=== PATIENT | male | born 1960 | race Caucasian/White ===

== ENCOUNTER 2019-11-15 12:54 | Day surgery (SDC) | payer OTHER ==
[2019-11-15] MEDS ORDERED: Lidocaine 1% with EPINEPHrine 1:100,000 20 ML MDV ONE (13:09)
[2019-11-15] MEDS ORDERED: Lidocaine 1% with EPINEPHrine 1:100,000 30 ML MDV INJECT ONE ×2 (13:34→13:44)
--- NOTE | 2019-11-15 15:15 | CN ---
SERVICE DATE: 11/15/2019 This 59-year-old male presents to the Surgery Clinic with 2 complaints. He states he had a branch hit him in the back of the head several months ago and since then it has been a nonhealing wound. It occasionally swells up and he squeezes this with some expression of bloody looking fluid. At 1 time, he said he did get a piece of debris out of the material squeezed out, but it has never been able to completely heal. He also has a painful lump on the left knee that he would like excised. So, in the [facility], both procedures were accomplished. Procedure #1, the area over the left knee was prepped and draped sterilely. An elliptical incision was made around what I felt was a sebaceous cyst. I did encounter the cyst wall and just simply excised the area containing the cyst wall. The measurement of the cyst is 0.5 x 1 cm. There are no other margins since this excision just hugged the wall of the cyst. The procedure #2, local anesthesia was infiltrated around the scalp lesion. An elliptical incision was made and carried full-thickness down through the skin. This elliptical incision also measured the same 0.5 x 1 cm. There are no other margins because I was simply excising an area that would possibly contain a foreign body. I did not find any. I did not open this up to look for a foreign body. Both wounds had been closed with interrupted 2-0 nylon sutures, which will be removed in 2 weeks. [facility] /[id number]
== END 2019-11-15 14:00 | disposition home or self-care (01) ==
LOC: DL.SDS 12:54 → DL.GSCL 12:54 → EDSTATUS 13:00 → DL.GSCL 14:00
PROVIDERS: ATTEND Surgery
DX: L72.3 Sebaceous cyst (principal); L98.9 Disorder of the skin and subcutaneous tissue, unspecified
CPT/HCPCS: 11401; 11421

== ENCOUNTER 2020-07-08 15:11 | Emergency (ER) | payer OTHER ==
[2020-07-08] MEDS ORDERED: Sodium Chloride 0.9% 1,000 ML IV ONE ×2 (15:44→17:17)
[2020-07-08] MEDS ORDERED: Sodium Chloride 0.9% 10 ML Syringe FLUSH PRN (15:44)
--- NOTE | 2020-07-08 15:45 | EDM.PDOC ---
<Anuja Roach - Last Filed: 07/08/20 17:55> ED HPI GENERAL MEDICAL PROBLEM - General Chief Complaint: Abdominal Pain Stated Complaint: RIGHT SIDE ACHE, DIARRHEA, PAIN Time Seen by Provider: 07/08/20 15:30 - Related Data Allergies Allergy/AdvReac Type Severity Reaction Status Date / Time No Known Allergies Allergy Verified 11/15/19 13:00 Home Meds: Home Meds Celecoxib 200 mg PO DAILY 09/15/16 [History] Esomeprazole Magnesium [Nexium] 40 mg PO DAILY 09/15/16 [History] Labetalol [Normodyne] 100 mg PO DAILY 09/15/16 [History] Loperamide [Imodium] 2 mg PO QID PRN 09/15/16 [History] atorvaSTATin [Lipitor] 10 mg PO DAILY 09/15/16 [History] lisinopriL [Zestril] 10 mg PO DAILY 09/15/16 [History] Course - Radiology Interpretation Free Text/Narrative:: [facility] Final Radiology Report Call: [phone] assistance Online chat: [email or web address] Name: ASAEL DENNY Age: 60Years M Date: 07/08/2020 SSN: -- : [id number] Study: CT ABDOMEN PELVIS W CONT Requesting Physician: ANUJA ROACH Images: [id number] Addl Studies: Provided Clinical History: Right sided abdominal pain, WBC 14.7 Contrast: With Contrast Medium: [id number] Contrast Amount: 75 mL Contrast Method: Intravenous (IV) Page 1 of 2 PROCEDURE INFORMATION: Exam: CT Abdomen And Pelvis With Contrast Exam date and time: 07/08/2020 5:09 PM Age: 60 years old Clinical indication: Other: Pain; Additional info: Right sided abdominal pain, wbc 14.7 TECHNIQUE: Imaging protocol: Computed tomography of the abdomen and pelvis with intravenous contrast. Radiation optimization: All CT scans at this facility use at least one of these dose optimization techniques: automated exposure control; mA and/or kV adjustment per patient size (includes targeted exams where dose is matched to clinical indication); or iterative reconstruction. Contrast material: [id number]; Contrast volume: 75 ml; Contrast route: INTRAVENOUS (IV); COMPARISON: CT Abdomen Pelvis w Cont 10/20/2013 10:14 AM FINDINGS: Liver: Simple appearing cyst is present arising from the right lobe of the liver just below the hemidiaphragm. It measures 1.1 x 0.9 cm. No solid hepatic lesion identified. There is no intrahepatic biliary ductal dilatation. Gallbladder and bile ducts: See "Liver" finding. Pancreas: Normal. No ductal dilation. Spleen: Normal. No splenomegaly. Adrenals: Normal. No mass. Kidneys and ureters: Normal. No hydronephrosis. Stomach and bowel: The colon is fluid-filled. The findings suggest probable diarrheal illness. Colitis is possible. No obstruction is identified. Appendix: The appendix is well seen and is normal. Intraperitoneal space: Unremarkable. No free air. No significant fluid collection. ASAEL DENNY | Final Radiology Report CONFIDENTIALITY STATEMENT This report is intended only for use by the referring physician, and only in accordance with law. If you received this in error, call [phone]. Page 2 of 2 Vasculature: [id number] grade calcium is noted within the left anterior descending coronary artery. The heart is not enlarged. Lymph nodes: Unremarkable. No enlarged lymph nodes. Urinary bladder: Unremarkable as visualized. Reproductive: Unremarkable as visualized. Bones/joints: Unremarkable. No acute fracture. Soft tissues: Unremarkable. IMPRESSION: 1. Fluid-filled colon suggesting probable diarrheal illness/colitis. Thank you for allowing us to participate in the care of your patient. Dictated and Authenticated by: Brad Mendez MD 07/08/2020 5:34 PM Central Time ([place] & [place]) - Re-Assessments/Exams Free Text/Narrative Re-Assessment/Exam: 07/08/20 15:59 I saw and evaluated the patient. Discussed with resident and agree with residents findings and plan as documented in the residents note. Departure - Departure Time of Disposition: 17:55 Disposition: Home, Self-Care 01 Clinical Impression: Infectious colitis - Discharge Information Instructions: Colitis, Diarrhea, Adult, [id number], Probiotics Forms: ED Department Discharge Additional Instructions: Take antibiotics as prescribed. Use over the counter anti-diarrhea medications if necessary. Maintain good hydration, increase fluid intake to replace fluid loss due to diarrhea. If symptoms worsen or fail to improve, contact your PCP or return to the emergency department. <Domo Brooks - Last Filed: 07/08/20 18:15> ED HPI GENERAL MEDICAL PROBLEM - General Source of Information: Reports: Patient History Limitations: Reports: No Limitations - History of Present Illness INITIAL COMMENTS - FREE TEXT/NARRATIVE: Patient is a 60 y/o male who presents ambulatory to the ED with complaints of right sided pain. Pain is located at the lower rib margin on the right side and radiates to the right lower abdomen. Pain is described as sharp, intermittent. Onset of pain was Thursday morning. Since then it has gotten worse. There is little to no pain at rest, pain is brought on with movement/position changes, specifically getting up from sitting or lying. He reports onset of frequent watery diarrhea this morning, which he suspects is related to eating undercooked meat last night. He does not feel that the diarrhea is related to his pain. Pain is not worsened with defecation. Stool has been watery, denies blood. Pain is not worsened with deep breathing. Patient has a history of prostate cancer. He is status post radical prostatectomy and chemoradiation. He undergoes surveillance with PSA. PSA has been persistently elevated to a mild degree, prevailing thought being there is disease burden somewhere that is unlikely to be detected by imaging. He has a history of hernia repair and orchiectomy secondary to hernia complication. He has some chronic nocturia / urinary frequency related to his prostatectomy. 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 Onset: Gradual Onset Date: 07/06/20 Duration: Getting Worse Location: Reports: Abdomen Quality: Reports: Sharp Improves with: Reports: Rest Worsens with: Reports: Movement Context: Reports: Activity Right Upper Abdomen Pain Score (Numeric/FACES): 6 Past Medical History - Past Surgical History Other Male Surgeries/Procedures: surgery on the prostate and radiation ED ROS GENERAL - Review of Systems Review Of Systems: See Below Constitutional: Denies: Fever, Chills, Weakness, Fatigue Respiratory: Denies: Shortness of Breath, Pleuritic Chest Pain, Cough Cardiovascular: Denies: Chest Pain, Lightheadedness Endocrine: Denies: Fatigue GI/Abdominal: Reports: Abdominal Pain, Diarrhea. Denies: Bloody Stool, Constipation, Nausea, Vomiting : Reports: Frequency. Denies: Dysuria, Hematuria Musculoskeletal: Reports: No Symptoms Skin: Reports: No Symptoms Neurological: Denies: Headache ED EXAM, GI/ABD - Physical Exam Exam: See Below Exam Limited By: No Limitations General Appearance: Alert, WD/WN, No Apparent Distress Eyes: Right: Pale Conjunctiva, Bilateral: Normal Appearance, EOMI Ears: Normal External Exam, Hearing Grossly Normal Nose: Normal Inspection Throat/Mouth: Normal Voice, No Airway Compromise Head: Atraumatic, Normocephalic Neck: Normal Inspection, Supple, Non-Tender Respiratory/Chest: No Respiratory Distress, Lungs Clear, Normal Breath Sounds, No Accessory Muscle Use, Chest Non-Tender Cardiovascular: Normal Peripheral Pulses, Regular Rate, Rhythm, No Edema, No Gallop, No Murmur, No Rub GI/Abdominal Exam: Normal Bowel Sounds, Soft, No Organomegaly, No Distention, No Mass, Tender (Tender in right lower quadrant just lateral to the umbilicus, no rebound or guarding.). No: Hernia Back Exam: Normal Inspection, Full Range of Motion, CVA Tenderness (R). No: CVA Tenderness (L) Extremities: Normal Inspection, Non-Tender, No Pedal Edema, Normal Capillary Refill Neurological: Alert, Oriented, Normal Cognition Psychiatric: Normal Affect, Normal Mood Skin Exam: Warm, Dry, Intact Course - Vital Signs Last Recorded V/S: Last Vital Signs Temp 97.6 F 07/08/20 15:28 Pulse 90 07/08/20 15:28 Resp 18 07/08/20 15:28 BP 131/69 07/08/20 15:28 Pulse Ox 99 07/08/20 15:28 - Orders/Labs/Meds Orders: Active Orders 24 hr Category Date Time Status Peripheral IV Care [RC] . DIRECTED Care 07/08/20 15:44 Active CULTURE BLOOD [BC] Stat Lab 07/08/20 16:09 Received Sodium Chloride 0.9% [Normal Saline] 1,000 ml Med 07/08/20 17:17 Active IV .BOLUS Sodium Chloride 0.9% [Saline Flush] Med 07/08/20 15:44 Active 10 ml FLUSH ASDIRECTED PRN Peripheral IV Insertion Adult [OM.PC] Stat Oth 07/08/20 15:43 Ordered Medication Orders Sodium Chloride (Normal Saline) 1,000 mls @ 999 mls/hr IV .BOLUS ONE Stop: 07/08/20 18:17 Last Admin: 07/08/20 17:20 Dose: 999 mls/hr Documented by: JONAH Sodium Chloride (Saline Flush) 10 ml FLUSH ASDIRECTED PRN PRN Reason: Keep Vein Open Last Admin: 07/08/20 15:47 Dose: 10 ml Documented by: FARHANA Labs: Laboratory Tests 07/08/20 07/08/20 07/08/20 Range/Units 15:23 15:23 16:09 WBC 14.7 H (5.0-10.0) 10^3/uL RBC 5.66 (4.6-6.2) 10^6/uL Hgb 17.4 (14.0-18.0) g/dL Hct 50.0 (40.0-54.0) % MCV 88.3 (80-100) fL MCH 30.7 (27.0-34.0) pg MCHC 34.8 (33.0-35.0) g/dL Plt Count 271 (150-450) 10^3/uL Neut % (Auto) 92.7 H (42.2-75.2) % Lymph % (Auto) 2.9 L (20.5-50.1) % Ross % (Auto) 3.1 (2-8) % Eos % (Auto) 1.2 (1.0-3.0) % Baso % (Auto) 0.1 (0.0-1.0) % Sodium 141 (136-145) mmol/L Potassium 4.7 (3.5-5.1) mmol/L Chloride 104 (98-107) mmol/L Carbon Dioxide 28 (21-32) mmol/L Anion Gap 13.7 H (7-13) mEq/L BUN 21 H (7-18) mg/dL Creatinine 1.43 H (0.70-1.30) mg/dL Est Cr Clr Drug Dosing 56.01 mL/min Estimated GFR (MDRD) 50 BUN/Creatinine Ratio 14.7 (No establ ref range) Glucose 133 H (74-99) mg/dL Lactic Acid 1.4 (0.4-2.0) mmol/L Calcium 8.9 (8.5-10.1) mg/dL Total Bilirubin 1.0 (0.2-1.0) mg/dL AST 23 (15-37) U/L ALT 52 (16-63) U/L Alkaline Phosphatase 76 (46-116) U/L C-Reactive Protein 1.1 H (0.0-0.9) mg/dL Total Protein 7.7 (6.4-8.2) g/dL Albumin 4.3 (3.4-5.0) g/dL Globulin 3.4 Albumin/Globulin Ratio 1.3 Amylase 96 (25-115) U/L Lipase 88 (73-393) U/L Urine Color (YELLOW) Urine Appearance (CLEAR) Urine pH (5.0-9.0) Ur Specific Ventress (1.005-1.030) Urine Protein (NEGATIVE) Urine Glucose (UA) (NEGATIVE) Urine Ketones (NEGATIVE) Urine Occult Blood (NEGATIVE) Urine Nitrite (NEGATIVE) Urine Bilirubin (NEGATIVE) Urine Urobilinogen (0.2-1.0) mg/dL Ur Leukocyte Esterase (NEGATIVE) U Hyaline Cast (Auto) Urine RBC /HPF Urine WBC (0-5/HPF) /HPF Ur Epithelial Cells (NOT SEEN) /HPF Amorphous Sediment (NOT SEEN) /HPF Urine Bacteria (0-FEW/HPF) /HPF Fine Granular Casts (NOT SEEN) /LPF Urine Mucus (NOT SEEN) /LPF 07/08/20 Range/Units 16:10 WBC (5.0-10.0) 10^3/uL RBC (4.6-6.2) 10^6/uL Hgb (14.0-18.0) g/dL Hct (40.0-54.0) % MCV (80-100) fL MCH (27.0-34.0) pg MCHC (33.0-35.0) g/dL Plt Count (150-450) 10^3/uL Neut % (Auto) (42.2-75.2) % Lymph % (Auto) (20.5-50.1) % Ross % (Auto) (2-8) % Eos % (Auto) (1.0-3.0) % Baso % (Auto) (0.0-1.0) % Sodium (136-145) mmol/L Potassium (3.5-5.1) mmol/L Chloride (98-107) mmol/L Carbon Dioxide (21-32) mmol/L Anion Gap (7-13) mEq/L BUN (7-18) mg/dL Creatinine (0.70-1.30) mg/dL Est Cr Clr Drug Dosing mL/min Estimated GFR (MDRD) BUN/Creatinine Ratio (No establ ref range) Glucose (74-99) mg/dL Lactic Acid (0.4-2.0) mmol/L Calcium (8.5-10.1) mg/dL Total Bilirubin (0.2-1.0) mg/dL AST (15-37) U/L ALT (16-63) U/L Alkaline Phosphatase (46-116) U/L C-Reactive Protein (0.0-0.9) mg/dL Total Protein (6.4-8.2) g/dL Albumin (3.4-5.0) g/dL Globulin Albumin/Globulin Ratio Amylase (25-115) U/L Lipase (73-393) U/L Urine Color Yellow (YELLOW) Urine Appearance Clear (CLEAR) Urine pH 6.0 (5.0-9.0) Ur Specific Vent[place] 1.025 (1.005-1.030) Urine Protein Trace H (NEGATIVE) Urine Glucose (UA) Negative (NEGATIVE) Urine Ketones 15 H (NEGATIVE) Urine Occult Blood Negative (NEGATIVE) Urine Nitrite Negative (NEGATIVE) Urine Bilirubin Negative (NEGATIVE) Urine Urobilinogen 0.2 (0.2-1.0) mg/dL Ur Leukocyte Esterase Negative (NEGATIVE) U Hyaline Cast (Auto) Rare Urine RBC 0-5 /HPF Urine WBC 0-5 (0-5/HPF) /HPF Ur Epithelial Cells Rare (NOT SEEN) /HPF Amorphous Sediment Rare (NOT SEEN) /HPF Urine Bacteria Rare (0-FEW/HPF) /HPF Fine Granular Casts Few H (NOT SEEN) /LPF Urine Mucus Many H (NOT SEEN) /LPF Meds: Medications Generic Name Dose Route Start Last Admin Trade Name Freq PRN Reason Stop Dose Admin Sodium Chloride 1,000 mls @ 999 mls/hr 07/08/20 17:17 07/08/20 17:20 Normal Saline IV 07/08/20 18:17 999 mls/hr .BOLUS ONE Administration Sodium Chloride 10 ml 07/08/20 15:44 07/08/20 15:47 Saline Flush FLUSH 10 ml ASDIRECTED PRN Administration Keep Vein Open Discontinued Medications Generic Name Dose Route Start Last Admin Trade Name Freq PRN Reason Stop Dose Admin Ciprofloxacin 500 mg 07/08/20 17:52 Ciprofloxacin Hcl PO 07/08/20 17:53 ONETIME ONE Sodium Chloride 1,000 mls @ 999 mls/hr 07/08/20 15:44 07/08/20 15:47 Normal Saline IV 07/08/20 16:44 999 mls/hr .BOLUS ONE Administration Iopamidol 100 ml 07/08/20 16:40 07/08/20 16:57 Isovue-300 (61%) IVPUSH 07/08/20 16:41 100 ml ONETIME ONE Administration Metronidazole 500 mg 07/08/20 17:53 Metronidazole PO 07/08/20 17:54 ONETIME ONE - Re-Assessments/Exams Free Text/Narrative Re-Assessment/Exam: 07/08/20 18:00 CT shows evidence of colitis. On consultation with patient's PCP Dr. Rojas, patient is prescribed a course of Cipro/Flagyl for presumed infectious colitis. Patient was updated with lab and CT findings. Discussed antibiotic course as well as recommendations for symptomatic treatment and maintaining hydration. He voices understanding and agreement with the plan. He is in favor of discharge home. Discussed signs and symptoms of worsening illness, return criteria. He voices understanding and agreement with the plan. Departure - Departure Condition: Good - Discharge Information *PRESCRIPTION DRUG MONITORING PROGRAM REVIEWED*: Not Applicable *COPY OF PRESCRIPTION DRUG MONITORING REPORT IN PATIENT SHERICE: Not Applicable Sepsis Event Note (ED) - Evaluation Sepsis Screening Result: No Definite Risk - Focused Exam Vital Signs: Vital Signs Temp Pulse Resp BP Pulse Ox 07/08/20 15:28 97.6 F 90 18 131/69 99 - Problem List & Annotations (1) Infectious colitis SNOMED Code(s): 47818994 Code(s): A09 - INFECTIOUS GASTROENTERITIS AND COLITIS, UNSPECIFIED Status: Acute Priority: Medium Onset Date: ~07/06/20 - Problem List Review Problem List Initiated/Reviewed/Updated: Yes - Assessment/Plan Assessment:: CT scan shows fluid filled large bowel, suggestive of colitis. Plan: Rx for Cipro and Flagyl for presumed infectious colitis. Follow up with Dr. Jose cole as instructed. Maintain hydration.
[2020-07-08 16:01] LABS: ANION GAP 13.7 mEq/L (7-13)
[2020-07-08] MEDS ORDERED: Iopamidol 612 MG/ML 100 ML Bottle IVPUSH ONE (16:40)
--- NOTE | 2020-07-08 17:35 | CT ---
PROCEDURE INFORMATION: Exam: CT Abdomen And Pelvis With Contrast Exam date and time: 07/08/2020 5:09 PM Age: 60 years old Clinical indication: Other: Pain; Additional info: Right sided abdominal pain, wbc 14.7 TECHNIQUE: Imaging protocol: Computed tomography of the abdomen and pelvis with intravenous contrast. Radiation optimization: All CT scans at this facility use at least one of these dose optimization techniques: automated exposure control; mA and/or kV adjustment per patient size (includes targeted exams where dose is matched to clinical indication); or iterative reconstruction. Contrast material: [id number]; Contrast volume: 75 ml; Contrast route: INTRAVENOUS (IV); COMPARISON: CT Abdomen Pelvis w Cont 10/20/2013 10:14 AM FINDINGS: Liver: Simple appearing cyst is present arising from the right lobe of the liver just below the hemidiaphragm. It measures 1.1 x 0.9 cm. No solid hepatic lesion identified. There is no intrahepatic biliary ductal dilatation. Gallbladder and bile ducts: See "Liver" finding. Pancreas: Normal. No ductal dilation. Spleen: Normal. No splenomegaly. Adrenals: Normal. No mass. Kidneys and ureters: Normal. No hydronephrosis. Stomach and bowel: The colon is fluid-filled. The findings suggest probable diarrheal illness. Colitis is possible. No obstruction is identified. Appendix: The appendix is well seen and is normal. Intraperitoneal space: Unremarkable. No free air. No significant fluid collection. Vasculature: [id number] grade calcium is noted within the left anterior descending coronary artery. The heart is not enlarged. Lymph nodes: Unremarkable. No enlarged lymph nodes. Urinary bladder: Unremarkable as visualized. Reproductive: Unremarkable as visualized. Bones/joints: Unremarkable. No acute fracture. Soft tissues: Unremarkable. IMPRESSION: 1. Fluid-filled colon suggesting probable diarrheal illness/colitis.
[2020-07-08] MEDS ORDERED: Ciprofloxacin 500 MG Tab PO ONE (17:52)
[2020-07-08] MEDS ORDERED: metroNIDAZOLE 250 MG Tab PO ONE (17:53)
[2020-07-08 18:23] VITALS: BP 135/70; PULSE 80
== END 2020-07-08 18:18 | disposition home or self-care (01) ==
LOC: DL.ED 15:11
DX: A09 Infectious gastroenteritis and colitis, unspecified (principal); Z79.899 Other long term (current) drug therapy
CPT/HCPCS: 36415; 74177; 80053; 81001; 82150; 83605; 83690; 85025; 86140; 87040; 96360; 96361; 99284; A9270; J7030; Q9967; 99283